=== PATIENT | female | born 1950 | race Caucasian/White ===

== ENCOUNTER → 2018-04-08 16:48 | Outpatient (CLI) | payer MEDICARE, BC, SELFPAY ==
--- NOTE | 2018-04-08 16:55 | DI.MRI.S_ITS ---
PROCEDURE: MR LUMBAR SPINE WO/W CON INDICATIONS: LOW BACK PAIN TECHNIQUE: Noncontrast sagittal T1 spin echo and T2 fast spin echo, sagittal STIR, axial T1 and T2 fast spin echo through the lumbar spine. In cases with scoliosis, additional coronal T2 fast spin echo may be performed. After the administration of contrast, sagittal and axial T1 spin echo with fat saturation through the lumbar spine. COMPARISON: [facility], CR, XR LUMBAR SPINE 2 OR 3 VIEWS, 04/02/2018, 13:17. [facility], CR, XR LUMBAR SPINE 2 OR 3 VIEWS, 03/24/2014, 11:59. [facility], MR, L-SPINE WITHOUT CONTRAST, 06/26/2012, 11:23. FINDINGS: Image quality: Excellent. Alignment and curvature: There is normal bony alignment. Marrow: Marrow is of normal overall signal. No acute vertebral body compression fractures. No suspicious marrow enhancement. Spinal cord: Conus medullaris terminates at the L1 level. Visualized spinal cord demonstrates normal signal, without suspicious enhancement. Paraspinous soft tissues: No paravertebral masses or abnormal enhancement. L1-L2: Preserved disc height. Mild to moderate disc desiccation. There is diffuse posterior disc bulge and posterior central disc protrusion. The central canal is okmi-bz-nebileofye narrowed. Mild to moderate bilateral foraminal stenosis. There is no significant change from last exam. L2-L3: Mild loss of disc height. Mild to moderate disc desiccation. There is diffuse posterior disc bulge and posterior central disc protrusion. Mild bilateral facet arthropathy and hypertrophy of ligamentum flavum. The central canal is moderately narrowed, slightly increased. Mild to moderate bilateral foraminal stenosis, unchanged. L3-L4: Moderate loss of disc height. Mild to moderate disc desiccation. There is mild posterior disc bulge and disc osteophyte complex. Mild bilateral facet arthropathy and hypertrophy of ligamentum flavum. The central canal is mildly narrowed. Mild to moderate bilateral foraminal stenosis. There is no significant change from the last exam. L4-L5: Preserved disc height and disc signal. There is mild posterior disc bulge and posterior central disc protrusion. Mild right facet arthropathy and severe asymmetric right hypertrophy of ligamentum flavum. The central canal is mildly narrowed, unchanged. Minimal bilateral foraminal stenosis. L5-S1: Severe loss of disc height and disc desiccation. There is posterior disc bulge and disc osteophyte complex. Mild bilateral facet arthropathy. The central canal is patent. Moderate bilateral foraminal stenosis, unchanged. IMPRESSION: 1. Multilevel degenerative disc disease and facet arthropathy as described. 2. Moderate central canal stenosis at L2-L3, and mild/moderate central canal stenosis at several other levels. 3. Mild to moderate multilevel foraminal stenosis as described. Dictated by: John Hernandez M.D. on 04/09/2018 at 9:06 Approved by: John Hernandez M.D. on 04/09/2018 at 10:28
== END ==
PROVIDERS: Family Provider Physician Assistant Medical; PCP Physician Assistant Medical; Visit Provider Orthopaedic Surgery
DX: M54.5 Low back pain (principal); M51.36 Other intervertebral disc degeneration, lumbar region; M47.816 Spondylosis without myelopathy or radiculopathy, lumbar region; M48.061 Spinal stenosis, lumbar region without neurogenic claudication
CPT/HCPCS: 72158; A9579

== ENCOUNTER 2018-08-01 07:48 | Day surgery (SDC) | payer MEDICARE, BC, SELFPAY ==
[2018-08-01 08:20] VITALS: BP 116/72; PULSE 100; RESP 16; TEMP 36.6; O2SAT 93; BMI 26.4
[2018-08-01] MEDS: SODIUM CHLORIDE 0.9% 1,000 ML 200 ML IV (08:30)
--- NOTE | 2018-08-01 08:34 | SUR.PREOP ---
Patient resting in bed with at bedside. Call light in reach. Bed in locked and low position. Awaiting procedure. Denies complaints or concerns at this time.
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
--- NOTE | 2018-08-01 09:17 | PM.PREOP ---
Pre-operative Note Interval Note Pre-op Check: Yes History & Physical exam performed today by Physician Changes: No ASA Class (for procedural sedation): I
[2018-08-01] MEDS: fentaNYL 250 MCG/5 ML INJ IV (09:32)
[2018-08-01] MEDS: MIDAZOLAM 5 MG/5 ML VIAL IV (09:33)
--- NOTE | 2018-08-01 09:45 | PM.OP.ENDO ---
Operative Date/Time/Diagnoses Date of procedure: 08/01/18 Time of procedure: 09:45 Pre-op diagnosis: History of polyps. Family history colon cancer. Last colonoscopy 5-6 years ago. Post-op diagnosis: same (Diverticulosis. Scarring on old hemorrhoidal disease. No active ulcerations.) Procedure & Clinicians Study performed: Colonoscopy Same procedure as scheduled: Yes Indications: Screening Surgeon: Romeo Gaffney Procedure Notes SCOAP/Timeout: Performed Procedure in detail: The patient was placed in the left lateral decubitus position and underwent IV sedation directed by the surgeon consisting of fentanyl and Versed. Digital exam was unremarkable. The scope was inserted and advanced through the rectum into the sigmoid, descending, transverse, and ascending colon. Pressure had to be applied to reach that level. Patient was noted to have scattered diverticuli throughout the colon. The cecum was reached identified by the ileocecal valve and the appendiceal opening. The scope was gradually brought out. No Polyps were found. The scope ultimately was retroflexed in the rectum. The appearance was remarkable for old hemorrhoidal disease with scarring but no active it present inflammation. The scope was removed and the patient tolerated the procedure well Scope withdrawal time: Almost 8 min Sedation minutes: 24 Findings: diverticulosis (Scattered throughout the colon.) Recommendations: Colonscopy in 5 years (Due to family history and personal history of polyps) Follow up: as needed Disposition: PACU
[2018-08-01 09:49] VITALS: BP 118/77; PULSE 94; RESP 17; O2SAT 96
[2018-08-01 09:53] VITALS: BP 113/64; PULSE 92; RESP 24; O2SAT 95
[2018-08-01 10:12] VITALS: BP 112/67; PULSE 99; RESP 15; TEMP 36.4; O2SAT 96
== END 2018-08-01 10:22 | disposition home or self-care (01) ==
PROVIDERS: Family Provider Physician Assistant Medical; PCP Physician Assistant Medical; Visit Provider Specialist
PROC: 0DJD8ZZ Inspection of Lower Intestinal Tract, Via Natural or Artificial Opening Endoscopic (ICD-10-PCS; CPT 45378; principal; 2018-08-01 08:45)
DX: Z86.010 Personal history of colon polyps (principal); Z80.0 Family history of malignant neoplasm of digestive organs; K57.30 Diverticulosis of large intestine without perforation or abscess without bleeding
CPT/HCPCS: G0105; 99152; 99153; J2250; J3010

== ENCOUNTER 2018-08-07 08:08 | Inpatient (IN) | payer MEDICARE, BC, SELFPAY ==
[2018-07-28 10:14] VITALS: BMI 27.5
[2018-08-07] VITALS (12 sets, daily range): BP systolic 96–118; BP diastolic 51–75; PULSE 59–85; RESP 13–18; TEMP 36.3–36.8; O2SAT 92–97; BMI 26.4
--- NOTE | 2018-08-07 | DI.RAD.S_ITS ---
PROCEDURE: XR LUMBAR SPINE 2-3V INDICATIONS: L5-S1 TLIF TECHNIQUE: 2 views of the lumbar spine were acquired. COMPARISON: None. FINDINGS: 2 spot fluoroscopic intraoperative views demonstrating a surgical instrument projecting in the posterior paraspinal soft tissues with the tip seen at the level of the L3-L4 disc space. L5-S1 posterior spinal fixation with paraspinal rods and pedicle screws in expected alignment. L5-S1 interbody graft also noted Dictated by: Memo Aguillon M.D. on 08/07/2018 at 13:32 Approved by: Memo Aguillon M.D. on 08/07/2018 at 13:33
[2018-08-07] MEDS: LACTATED RINGERS 1,000 ML 42 ML IV (10:00)
--- NOTE | 2018-08-07 10:24 | PM.PREOP ---
Pre-operative Note Interval Note Pre-op Check: Yes History & Physical Reviewed by Physician and Yes Exam Performed Changes: No
[2018-08-07] MEDS: CLINDAMYCIN 900 MG/50 ML PIGGYBACK 50 MG IV (11:00)
--- NOTE | 2018-08-07 11:39 | SUR.OPER ---
Prone on spine table, head in foam head support, padded chest and pelvic supports, gel pad at knees, lower legs supported by pillows; nipples, genitalia and toes free of pressure, arms secured on foam padded arm boards at <90 degrees abduction. Tape over blanket at thigh secured to table.
[2018-08-07] MEDS: THROMBIN (BOVINE) 5,000 UNIT VIAL 5000 UNIT TOP (11:48)
[2018-08-07] MEDS: VANCOMYCIN 1,000 MG VIAL 1000 MG TOP (11:48)
[2018-08-07] MEDS: SODIUM CHLORIDE 0.9% 1,000 ML, GENTAMICIN 80 MG IRR (11:49)
[2018-08-07] MEDS: BUPIVACAINE 0.5% (PF) 4 ML, MORPHINE-PF 4 MG, BUTORPHANOL 1 MG, fentaNYL 100 MCG INJ (13:55)
--- NOTE | 2018-08-07 14:20 | PM.OP.1 ---
Operative Date/Time/Diagnoses Date of procedure: 08/07/18 Time of procedure: 14:20 Pre-op diagnosis: Lumbar stenosis with radiculopathy Post-op diagnosis: same Procedure & Clinicians Procedure: L2-3 laminectomy L3-4 laminectomy L5-S1 revision laminectomy L5-S1 TLIF (post/post innerbody fusion) L5 and S1 screws Cage Iliac crest bone graft Placement of an epidural catheter Use of microscope Same procedure as scheduled: Yes Indications: [age] year old female with intractable pain from lumbar stenosis. They had failed conservative management and requested operative intervention. Risks and benefits of surgery were discussed and appropriate consents were obtained. Surgeon: Rigo Olmstead Attendant [facility]: [facility] Ackerman Anesthesia Type: General Operative Notes Findings: none Closure Type: primary Specimen(s): none sent Implants & Drains: NuVasive MAS Reline screws Globus Rise cage Applied: catheter Estimated Blood Loss (mL): 50 Blood products transfused: none Procedure in detail: The patient was brought to the operating room and intubated on the table. A time-out was performed. They were then rolled over to the well-padded Luan table in the prone position. Preoperative antibiotics were given. The back was prepped and draped in the standard sterile fashion. Using fluoroscopy, a 4 cm longitudinal incision was made to the left of the midline. We used Bovie to come down to and split the lumbodorsal fascia. Using fluoroscopy and monitoring, we then percutaneously placed Jamshidi needles down the pedicles of L5 and S1 on the left side. These were changed out to guidewires and then we tapped and then placed the NuVasive MAS Precept screw shanks. We then opened up the retractors and used Bovie to clear up the posterolateral gutter as well as medially along the lamina to the spinous processes. A bur was used to decorticate the transverse processes. Using a combination of bur and Kerrison rongeurs, a revision left-sided laminectomy was performed at L5-S1. This was a revision is there was a large amount of scar tissue coming down from the previous L4-5 laminectomy. This was densely adherent to the dura and had to be carefully dissected away. The S1 nerve root was also scarred down to the disc space along with this and took a large amount of time to carefully free it up. We cleared over past the midline and carefully depressed the dura until we were able to decompress the opposite side. We cleared out the neural foramen. This completed the revision laminotomy at L5-S1. This was separate and distinct from the TLIF approach as we were decompressing through scarred in revision area which required much more time for dissection and nerve manipulation. We then began the TLIF prep. A complete facetectomy was performed on this side at L5-S1. We carefully cleaned up the remainder of the foramen until we could easily retract the exiting root as well as clearing medially below the dura and expose the disc space. The disc was prepped with bipolar and then an annulotomy was performed. We performed a diskectomy using a combination of paddles, torrie, Kerrison, and curettes. We distracted the disc using a paddle and locked the retractor in an open position. We then filled the disc space with Osteocell bone graft. We then placed the globus Rise cage under fluoroscopy and then filled this in with more bone graft. The distraction on the retractor was released to compress down. This completed the posterior interbody fusion portion of the TLIF at L5-S1. We then placed the screw heads, carmen, and locked down the set screws. The wound was copiously irrigated. A small stab incision was made over the PSIS. We used a Jamshidi needle to aspirate several mL of bone marrow from the pelvis. This was mixed with the remaining Osteocell and combined with all of the locally harvested bone graft and placed in the posterolateral gutter for the posterior fusion of the TLIF at L5-S1. We then went to the opposite side. Again using fluoroscopy, a 3 cm incision was made and Bovie was used to come down to split the fascia. Using neural monitoring and fluoroscopy, Jamshidi needles were advanced down the pedicles of L5 and S1 on the right side. These were switched over guidewires, tapped, and screws placed. We then placed a carmen and locked the set screws on this side. The wound was irrigated. The fascia was closed. We then made a 4 cm midline incision above this area. We dissected with Bovie along the right paraspinal muscles and expose the lamina of L2 and L3. Position was confirmed with fluoroscopy. We then brought the microscope back in. A combination of bur and Kerrison 3 to perform a laminectomy of L3-4 and L2-3. We carefully depress the dura and reach to the opposite side to remove all the facet overgrowth on the left. At the end of this the spinal canal was wide open as well as the neural foramina been cleared. The wound was copiously irrigated An epidural catheter was then placed in the spinal canal by carefully depressing the dura and advancing it 6 cm cephalad under the remaining lamina without resistance. The muscle fascia was closed. The catheter was then injected with a solution containing 4 mL of 0.5% Marcaine, 1 mg Stadol, 4 mg Duramorph, and 100 mcg of fentanyl. This was injected without resistance and the catheter was pulled. The wounds were again irrigated. Vancomycin powder was placed in the wounds. The superficial and skin were closed. A sterile dressing was placed. The patient was then rolled over extubated and brought to recovery room without complications. Complications: none Condition: stable Disposition: PACU Plan for aftercare: Inpatient. Up with physical therapy.
--- NOTE | 2018-08-07 15:55 | P.PN_ITS ---
Subjective Date Patient Seen: 08/07/18 Time Patient Seen: 15:54 Interval history: Pain 10 all back Exam Vital Signs (past 8 hours): - 08/07/18 08:42 08/07/18 14:15 08/07/18 14:20 Temperature 97.3 F L 98.3 F Pulse Rate 70 74 73 Respiratory Rate 16 13 14 Blood Pressure 118/70 98/51 L 96/52 L Pulse Oximetry 93 92 93 08/07/18 14:25 08/07/18 14:30 08/07/18 14:43 Temperature 97.3 F L 97.6 F Pulse Rate 78 75 71 Respiratory Rate 17 17 18 Blood Pressure 97/57 L 106/59 L 111/62 Pulse Oximetry 93 97 96 08/07/18 15:01 08/07/18 15:02 08/07/18 15:36 Temperature 97.5 F L 97.5 F L 97.4 F L Pulse Rate 73 70 59 L Respiratory Rate 16 18 16 Blood Pressure 114/75 114/75 106/57 L Pulse Oximetry 95 94 95 Oxygen Delivery Method Room Air Oxygen Flow Rate 0 Const Orientation: alert and oriented x3 Back/Spine/Pelvis Other: 5/5 motor BLE Assessment & Plan Post-op Postoperative Procedures Operation Date: 08/07/18 10:15 Actual Procedures Side Surgeon p Laminectomy L2-3,L3-4 Revision Laminectomy L5-S1 with instrumented fusion(TLIF ) with bone graft Rigo Olmstead MD Stable after lami/fusion. anticipate 2-3 days in hospital. up with PT
[2018-08-07] MEDS: LACTATED RINGERS 1,000 ML 125 ML IV (16:02)
[2018-08-07] MEDS: CELECOXIB 200 MG CAPSULE 400 MG PO (16:24)
[2018-08-07] MEDS: GABAPENTIN 300 MG CAPSULE 600 MG PO ×2 (16:25→20:30)
[2018-08-07] MEDS: HYDROCODONE/ACET 5/325 TABLET 1 TAB PO (17:47)
[2018-08-07] MEDS: hydrOXYzine pamoate 25 MG CAPSULE PO (17:47)
--- NOTE | 2018-08-07 17:54 | PC.NURSE ---
Pt rouses easily to voice. Able to log roll for assessment of dressing to back which is intact without drainage. Spouse is present and attentive to pt's needs/concerns. Denies pain, denies nausea. Admits to full sensation to all extremities. BL calf scd's in place. Jacob to gravity with clear, yellow urine. Encouraged pt to alert staff when incisional discomfort occurs. Dr. Olmstead in to see patient.
[2018-08-07] MEDS: CLINDAMYCIN 600 MG/50 ML PIGGYBACK 50 MG IV (20:25)
[2018-08-07] MEDS: CELECOXIB 200 MG CAPSULE PO (20:29)
[2018-08-07] MEDS: DOCUSATE 100 MG CAPSULE PO (20:29)
[2018-08-07] MEDS: SENNOSIDES 8.6 MG TABLET 17.2 MG PO (20:30)
[2018-08-07] MEDS: TOPIRAMATE 25 MG TABLET 50 MG PO (20:37)
--- NOTE | 2018-08-07 22:11 | PC.NURSE ---
When pt was turned to the left side this evening this chief underwriter noted pt's sutures to distal back incision were exposed to air. Dressing above this region intact with scant amount bloody drainage contained within dressing. This chief underwriter covered exposed sutures distally BL with folded 4 x 4 and secured with large tegaderm. Pt denies need for further pain medications. Circulation, motion, sensation to feet BL intact. BL calf scd's in place.
--- NOTE | 2018-08-07 22:50 | PC.NURSE ---
With sleep, pt's 02 sats on room air 89-91%. Placed pt on 2L per nc and sats increase to 97%. Rouses easily to voice.
[2018-08-08] VITALS (9 sets, daily range): BP systolic 98–158; BP diastolic 48–90; PULSE 67–75; RESP 16–18; TEMP 36.5–37; O2SAT 89–98
[2018-08-08] MEDS: LACTATED RINGERS 1,000 ML 125 ML IV ×2 (00:01→09:05)
--- NOTE | 2018-08-08 01:57 | PC.NURSE ---
shift note Met with pt at start of shift. A0x3. Remains on 2L while asleep. No complaints of pain, N/V. CMS intact. Currently asleep in bed. Call light in reach.
[2018-08-08] MEDS: HYDROCODONE/ACET 5/325 TABLET 1 TAB PO ×3 (02:58→13:30)
[2018-08-08] MEDS: CLINDAMYCIN 600 MG/50 ML PIGGYBACK 50 MG IV (02:59)
[2018-08-08 05:09] LABS: Hematocrit 36.2 % (36-46); Hemoglobin 12.4 g/dL (12.0-16.0)
[2018-08-08] MEDS: buPROPion XL 150 MG TAB 300 MG PO (08:54)
[2018-08-08] MEDS: DOCUSATE 100 MG CAPSULE PO ×2 (08:54→20:30)
[2018-08-08] MEDS: CELECOXIB 200 MG CAPSULE PO ×2 (08:54→20:30)
[2018-08-08] MEDS: GABAPENTIN 300 MG CAPSULE 600 MG PO ×3 (08:54→20:30)
[2018-08-08] MEDS: TOPIRAMATE 25 MG TABLET 50 MG PO ×2 (09:11→20:33)
--- NOTE | 2018-08-08 10:06 | PM.PNPO.1 ---
Subjective Date Patient Seen: 08/08/18 Time Patient Seen: 10:06 Interval history: Postop day 1. Status post L2 -3, L3-4 laminectomies, and L5-S1 TLIF with Dr. Olmstead. Patient's pain is well controlled with [place] and Vistaril. She does not have medications at home. She has not been up with physical therapy yet. Has Jacob catheter in place still. Exam Vital Signs (past 8 hours): - 08/08/18 06:00 08/08/18 07:56 Temperature 98.2 F Pulse Rate 67 Respiratory Rate 16 Blood Pressure 98/62 Pulse Oximetry 97 97 Oxygen Delivery Method Nasal Cannula Oxygen Flow Rate 2 Narrative Exam Narrative: Patient lying in bed in no acute distress. She is alert and oriented x3. Calves are soft, compressible, nontender bilaterally. Jacob in place. She is able to actively dorsiflex plantar flex. Sensation intact light touch throughout bilateral lower extremities. Objective Labs Result Diagrams: 08/08/18 04:40 Labs: Laboratory Results - last 24 hr 08/08/18 04:40 Hgb 12.4 Hct 36.2 Assessment & Plan Post-op (1) S/P lumbar fusion: Current Visit: Yes Status: Acute Postoperative Procedures Operation Date: 08/07/18 10:15 Actual Procedures Side Surgeon p Laminectomy L2-3,L3-4 Revision Laminectomy L5-S1 with instrumented fusion(TLIF) with bone graft Rigo Olmstead MD Postop day 1. Status post L2 -3, L3-4 laminectomies, and L5-S1 TLIF with Dr. Olmstead. Patient will plan to mobilize with physical therapy today. No excessive bending, lifting, or twisting. Keep Jacob in place until tomorrow a.m.. Continue current pain control. Patient will likely discharge in next 1-2 days once pain is adequately controlled and mobilizing safely.
--- NOTE | 2018-08-08 10:11 | P.PN_ITS ---
Subjective Date Patient Seen: 08/08/18 Time Patient Seen: 10:06 Interval history: Postop day 1. Status post L2 -3, L3-4 laminectomies, and L5- S1 TLIF with Dr. Olmstead. Patient's pain is well controlled with [place] and Vistaril. She does not have medications at home. She has not been up with physical therapy yet. Has Jacob catheter in place still. Exam Vital Signs (past 8 hours): - 08/08/18 06:00 08/08/18 07:56 Temperature 98.2 F Pulse Rate 67 Respiratory Rate 16 Blood Pressure 98/62 Pulse Oximetry 97 97 Oxygen Delivery Method Nasal Cannula Oxygen Flow Rate 2 Narrative Exam Narrative: Patient lying in bed in no acute distress. She is alert and oriented x3. Calves are soft, compressible, nontender bilaterally. Jacob in place. She is able to actively dorsiflex plantar flex. Sensation intact light touch throughout bilateral lower extremities. Objective Labs Result Diagrams: 08/08/18 04:40 Labs: Laboratory Results - last 24 hr 08/08/18 04:40 Hgb 12.4 Hct 36.2 Assessment & Plan Post-op (1) S/P lumbar fusion: Current Visit: Yes Status: Acute Postoperative Procedures Operation Date: 08/07/18 10:15 Actual Procedures Side Surgeon p Laminectomy L2-3,L3-4 Revision Laminectomy L5-S1 with instrumented fusion(TLIF ) with bone graft Rigo Olmstead MD Postop day 1. Status post L2 -3, L3-4 laminectomies, and L5-S1 TLIF with Dr. Olmstead. Patient will plan to mobilize with physical therapy today. No excessive bending, lifting, or twisting. Keep Jacob in place until tomorrow a.m.. Continue current pain control. Patient will likely discharge in next 1- 2 days once pain is adequately controlled and mobilizing safely.
[2018-08-08] MEDS: hydrOXYzine pamoate 25 MG CAPSULE PO ×3 (10:49→21:51)
--- NOTE | 2018-08-08 11:35 | PC.NURSE ---
AM NOTE - alert, damien gen diet, no nausea, + bt, states back discomfort 3-4 on scale 0/10, discussed medications and given norco 5/325mg x1 tab after meal, later felt that pain 4 prior to phys therapy and added 25mg po vistaril, then able to get up with phys therapy, after some initial dizziness that resolved, ambul w/fww, gait belt with phys therapy down hallway, gait steady and ret to chair.
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
--- NOTE | 2018-08-08 15:25 | CM.IDA ---
Discharge Planning/Care Management CM Discharge Assessment Start: 08/08/18 15:22 Freq: Status: Active Protocol: Document 08/08/18 15:22 ROSARIO (Rec: 08/08/18 15:24 ROSARIO [email or web address]) Discharge Planning Assessment Assigned Electrical Design Engineer DIOGO Pal DPOA/Assigned Designee Name Jose A Gaitan, spouse Contact Information [phone] Advance Directives? Yes Advance Directives on File No History Provided By Patient Prior Living Arrangements House Household Members spouse Type of transporation used prior to Drives own vehicle admit Independent with ADL's Yes Is patient alert and oriented? Yes Barriers to Discharge No Comment Home w/spouse Saturday; [address] back to [place]. Discharge Plan Home Transportation Arrangement Spouse Referrals Initiated None needed Additional Comment Pt and spouse both feel confident about pt's return home. PT has cleared pt for return home and RN agrees pt should have no barriers tomorrow. Progressing well after surgery. Whiteboard Updated in Patient Room with Yes name and ext. # of Electrical Design Engineer Review Status In Process Pre-Anesthesia Assessment Start: 07/28/18 10:14 Freq: Status: Complete Protocol: Document 07/28/18 10:14 NIYAH (Rec: 07/28/18 10:34 NIYAH [email or web address])
--- NOTE | 2018-08-08 15:29 | PT.IPTN ---
Current Diagnoses Spinal stenosis, lumbar region with neurogenic claudication (08/07/18) Other intervertebral disc degeneration, lumbar region (08/07/18) Arthrodesis status (08/07/18) Other specified postprocedural states (08/07/18) Surgery Performed Operation Date: 08/07/18 10:15 Actual Procedures p Laminectomy L2-3,L3-4 Revision Laminectomy L5-S1 with instrumented fusion(TLIF) with bone graft - Rigo Olmstead MD Physical Therapy Treatment Note M2 PT-IP Current Condition Start: 08/08/18 12:56 Freq: NEEDED Status: Active Protocol: Document 08/08/18 11:49 DLM (Rec: 08/08/18 17:57 DLM [email or web address]) Physical Therapy Current Condition Current Condition Evaluation Date 08/08/18 Treatment Diagnosis L5-S1 TLIF, L3-S1 Laminectomy, impaired gait Onset Date 08/07/18 Precautions Lumbar Precautions Log Roll No Twisting Limit Bending Lifting Restriction of 10 lbs Gait Belt above Incisional Area M3 PT-IP Subjective Start: 08/08/18 12:56 Freq: NEEDED Status: Active Protocol: Document 08/08/18 15:29 DLM (Rec: 08/08/18 18:05 DLM [email or web address]) Subjective Physical Therapy Visit Type Type Treatment Note Visit Start Time 15:00 Visit Stop Time 15:29 Total Visit Minutes 29 Number of METER AND SERVICE LINE INSPECTOR Visits 0 Physical Therapy Visit Comments Patient Comments She wants to walk Therapy Pain Assessment Pain When Pain Assessed During Mobility Pain Present Pain Present Pain Reported Location Back Intensity 4 Scale Used Numeric (1 - 10) Description Aching Pain Management Techniques Re-positioning M4 PT-IP Mobility and Gait Start: 08/08/18 12:56 Freq: NEEDED Status: Active Protocol: Document 08/08/18 15:29 DLM (Rec: 08/08/18 18:05 DLM [email or web address]) PT-Bed Mobility Assessment Rolling Type of Rolling Log Rolling Roll to Right Roll to Left Level of Assist Standby Assistance Supine to Sit Supine to Sit Standby Assistance Sit to Supine Sit to Supine Minimal Assistance Scooting Scooting to Edge of Bed Standby Assistance PT-Transfer Assessment Sit to and From Stand Sit to and from Stand Standby Assistance Use of Upper Extremities Equipment Transfer Assistive Device Gait Belt Front Wheeled Walker Comments Mobility Comments training on tall bed to simulate her bed at home, she does well getting off the bed but has increased pain getting back up onto it Gait Assessment Gait Gait Assistance Required: Standby Assistance Distance (Feet) 200 Assistive Devices Assistive Device Gait Belt Front Wheeled Walker Factors Limiting Gait Function Factors Limiting Gait Function Decreased Activity Tolerance Pain Comments Gait Comments verbal cues to avoid twisting motions when up moving functionally Stair Climbing Assessment Evaluation Level of Assist On Stairs Contact Guard Assistance Devices Stair Climbing Assistive Devices Right Railing Technique/Endurance Stair Climbing Direction Ascend and Descend Stair Climbing Technique Step to Step Number of Steps Climbed 3 Query Text: Stair Climbing Set # Repetitions (reps) 2 M5 PT-IP Objective Assessments Start: 08/08/18 12:56 Freq: NEEDED Status: Active Protocol: Document 08/08/18 11:49 DLM (Rec: 08/08/18 17:57 DLM [email or web address]) Orientation Orientation/Cognition Level of Alertness Alert Orientation Name Age Birthday Month Date Year Day of Week Place Situation Language Function Ability No Deficits Noted Safety Awareness Understands Safety Issues Memory Description No Deficits Noted Gross Range of Motion Upper Extremity ROM Assessment Within Functional Limits Lower Extremity ROM Assessment Within Functional Limits Strength Upper Extremity Strength Assessment Within Functional Limits Lower Extremity Strength Assessment Bilaterally Impaired Comments Strength Comments she describes mild LE weakness in standing Coordination Assessment Gross Coordination Gross Coordination WNL Sensation Assessment Sensation Gross Sensation WNL Muscle Tone Muscle Tone WNL No Comments Muscle Tone Comments mild tremors, tends to hold head to left sidebent position but can self correct especially when cued M6 PT-IP Treatment Start: 08/08/18 12:56 Freq: NEEDED Status: Active Protocol: Document 08/08/18 15:29 DLM (Rec: 08/08/18 18:05 DL [email or web address]) Physical Therapy Treatment Exercises Exercises Ankle Pumps Education Education Provided Precautions Post-Op Packet Safety Other Treatments Other Treatment Performed Her Spouse participate in education for home safety and precautions. Answered her questions about how to advance home activities . M7 PT-IP Assessment and Plan Start: 08/08/18 12:56 Freq: NEEDED Status: Active Protocol: Document 08/08/18 15:29 DLM (Rec: 08/08/18 18:05 DLM [email or web address]) PT Summary Assessment and Plan Summary Progress Towards Goals Progressing Toward Goals Assessment Summary She continues to progress well this visit. Her tolerance for gait is improving. Anticipate she will be ready to discharge home with her Spouse tomorrow if medically cleared . Pt still has han catheter at this time. She demonstrates safe use of her FWW. Pt requesting one more therapy visit before going home for additional education. Pt has a ferry to catch on day of discharge. Frequency of Treatment Frequency Of Treatment Twice a Day Treatment Plan Physical Therapy Treatment Plan Bed Mobility Training Transfer Training Gait Training Therapeutic Exercise Balance Retraining Post Op Education Discharge Planning Hot or Cold Pack Recommendations To Nursing Amount of Assist Needed 1 Person Assist Discharge Recommendations PT Discharge Recommendations Home with Assistance
[2018-08-08] MEDS: HYDROCODONE/ACET 5/325 TABLET 2 TAB PO ×2 (17:26→21:51)
[2018-08-08] MEDS: SENNOSIDES 8.6 MG TABLET 17.2 MG PO (20:30)
[2018-08-08] MEDS: PROPRANOLOL ER 60 MG CAPSULE PO (20:31)
[2018-08-08] MEDS: PROPRANOLOL 10 MG TABLET 40 MG PO (20:31)
[2018-08-08] MEDS: SODIUM CHLORIDE 0.9% FLUSH 10 ML IV (20:34)
[2018-08-09 00:08] VITALS: BP 93/49; PULSE 65; RESP 16; TEMP 36.7; O2SAT 93
[2018-08-09 06:12] VITALS: BP 89/51; PULSE 59; RESP 16; TEMP 36.7; O2SAT 96
[2018-08-09 08:00] VITALS: BP 104/44; PULSE 61; RESP 16; TEMP 36.6; O2SAT 96
[2018-08-09] MEDS: HYDROCODONE/ACET 5/325 TABLET 2 TAB PO ×2 (08:56→12:58)
[2018-08-09] MEDS: hydrOXYzine pamoate 25 MG CAPSULE PO (08:57)
[2018-08-09] MEDS: GABAPENTIN 300 MG CAPSULE 600 MG PO (08:58)
[2018-08-09] MEDS: buPROPion XL 150 MG TAB 300 MG PO (08:58)
[2018-08-09] MEDS: DOCUSATE 100 MG CAPSULE PO (08:58)
[2018-08-09] MEDS: CELECOXIB 200 MG CAPSULE PO (08:58)
[2018-08-09] MEDS: SODIUM CHLORIDE 0.9% FLUSH 10 ML IV (09:00)
[2018-08-09] MEDS: TOPIRAMATE 25 MG TABLET 50 MG PO (09:01)
--- NOTE | 2018-08-09 09:19 | PM.DS.1 ---
History of Present Illness Date Patient Seen: 08/09/18 Time Patient Seen: 09:20 Chief complaint: [id number] L2-4 L5-S1 Narrative: Patient's pain is [id number]. No fever chills. No nausea vomiting. She denies any dizziness. She has recently been treated for essential tremor. She has known low blood pressure. Discharge Providers Date of admission: 08/07/18 08:08 Primary care physician: Maggi Joya PA-C Consults: 08/07/18 15:01 Consult to Occupational Therapy Evaluate & Treat Comment: Physician Instructions: Evaluate and treat Consult to Physical Therapy Evaluate & Treat Comment: Physician Instructions: Evaluate and Treat Discharge provider: Catracho Saha PA-C Discharge Date: 08/09/18 Summary Discharge Diagnosis: Procedure: L2-3 laminectomy L3-4 laminectomy L5-S1 revision laminectomy L5-S1 TLIF (post/post innerbody fusion) L5 and S1 screws Cage Iliac crest bone graft Placement of an epidural catheter Use of microscope Hospital Course: [age] year old female with intractable pain from lumbar stenosis. They had failed conservative management and requested operative intervention. Risks and benefits of surgery were discussed and appropriate consents were obtained. Patient admitted to the hospital for the above-mentioned procedure. Patient underwent general anesthesia. Estimated blood loss 50 cc. Patient back in her room recovering well and is in stable condition. Status at Discharge Functional status at discharge: uses cane/walker Overall status at discharge: patient is progressing back to baseline Time Spent with Patient Less than 30 minutes Exam Vital Signs (past 8 hours): - 08/09/18 06:12 Temperature 98.0 F Pulse Rate 59 L Respiratory Rate 16 Blood Pressure 89/51 L Pulse Oximetry 96 Oxygen Delivery Method Room Air Oxygen Flow Rate 3 Narrative Exam Narrative: Pleasant 68-year-old female resting comfortably in bed in no apparent distress. Dressing is clean, dry and intact. Motor functions intact distal bilateral lower extremities. Sensation grossly intact to light touch bilateral lower extremities. Objective Labs Result Diagrams: 08/08/18 04:40 Discharge Plan Discharge Plan Patient Disposition: Home Discharge comment: DC home today Discharge Med Rec/Prescriptions Prescriptions: New hydrocodone-acetaminophen 5-325 mg Tablet 2 tab PO Q4HR PRN (Reason: Pain, Severe (7-10)) Qty: 60 RF: 0 Continue bupropion HCl 300 MG tablet extended release 24 hr 300 mg PO QDAY Qty: 0 RF: 0 rizatriptan 10 MG tablet 10 mg PO PRN PRN (Reason: Migraine Headache) Qty: 0 RF: 0 propranolol 10 mg Tablet 40 mg PO DAILY RF: 0 gabapentin 300 mg Capsule 600 mg PO TID RF: 0 propranolol 60 mg Capsule,Extended Release 24 Hr 60 mg PO DAILY RF: 0 topiramate [Topamax] 25 mg Capsule, Sprinkle 50 mg PO BID RF: 0 Follow up/Referrals: Maggi Joya PA-C [Primary Care Provider] - Rigo Olmstead MD [Physician] - 2 Weeks Provider Discharge Instructions Diet: Diet as Tolerated Activity: Limit bending, twisting, lifting Cold/Heat Therapy: ice as needed Skin/Wound/Dressing Care Dressing: keep dressing clean and dry Discharge Data Primary Care Provider: Maggi Joya Attending Provider: Rigo Olmstead Admit Date/Time: 08/07/18 08:08
--- NOTE | 2018-08-09 09:23 | P.DS_ITS ---
History of Present Illness Date Patient Seen: 08/09/18 Time Patient Seen: 09:20 Chief complaint: [id number] L2-4 L5-S1 Narrative: Patient's pain is [id number]. No fever chills. No nausea vomiting. She denies any dizziness. She has recently been treated for essential tremor. She has known low blood pressure. Discharge Providers Date of admission: 08/07/18 08:08 Primary care physician: Maggi Joya PA-C Consults: 08/07/18 15:01 Consult to Occupational Therapy Evaluate & Treat Comment: Physician Instructions: Evaluate and treat Consult to Physical Therapy Evaluate & Treat Comment: Physician Instructions: Evaluate and Treat Discharge provider: Catracho Saha PA-C Discharge Date: 08/09/18 Summary Discharge Diagnosis: Procedure: L2-3 laminectomy L3-4 laminectomy L5-S1 revision laminectomy L5-S1 TLIF (post/post innerbody fusion) L5 and S1 screws Cage Iliac crest bone graft Placement of an epidural catheter Use of microscope Hospital Course: [age] year old female with intractable pain from lumbar stenosis. They had failed conservative management and requested operative intervention. Risks and benefits of surgery were discussed and appropriate consents were obtained. Patient admitted to the hospital for the above-mentioned procedure. Patient underwent general anesthesia. Estimated blood loss 50 cc. Patient back in her room recovering well and is in stable condition. Status at Discharge Functional status at discharge: uses cane/walker Overall status at discharge: patient is progressing back to baseline Time Spent with Patient Less than 30 minutes Exam Vital Signs (past 8 hours): - 08/09/18 06:12 Temperature 98.0 F Pulse Rate 59 L Respiratory Rate 16 Blood Pressure 89/51 L Pulse Oximetry 96 Oxygen Delivery Method Room Air Oxygen Flow Rate 3 Narrative Exam Narrative: Pleasant 68-year-old female resting comfortably in bed in no apparent distress. Dressing is clean, dry and intact. Motor functions intact distal bilateral lower extremities. Sensation grossly intact to light touch bilateral lower extremities. Objective Labs Result Diagrams: 08/08/18 04:40 Discharge Plan Discharge Plan Patient Disposition: Home Discharge comment: DC home today Discharge Med Rec/Prescriptions Prescriptions: New hydrocodone-acetaminophen 5-325 mg Tablet 2 tab PO Q4HR PRN (Reason: Pain, Severe (7-10)) Qty: 60 RF: 0 Continue bupropion HCl 300 MG tablet extended release 24 hr 300 mg PO QDAY Qty: 0 RF: 0 rizatriptan 10 MG tablet 10 mg PO PRN PRN (Reason: Migraine Headache) Qty: 0 RF: 0 propranolol 10 mg Tablet 40 mg PO DAILY RF: 0 gabapentin 300 mg Capsule 600 mg PO TID RF: 0 propranolol 60 mg Capsule,Extended Release 24 Hr 60 mg PO DAILY RF: 0 topiramate [Topamax] 25 mg Capsule, Sprinkle 50 mg PO BID RF: 0 Follow up/Referrals: Maggi Joya PA-C [Primary Care Provider] - Rigo Olmstead MD [Physician] - 2 Weeks Provider Discharge Instructions Diet: Diet as Tolerated Activity: Limit bending, twisting, lifting Cold/Heat Therapy: ice as needed Skin/Wound/Dressing Care Dressing: keep dressing clean and dry Discharge Data Primary Care Provider: Maggi Joya Attending Provider: Rigo Olmstead Admit Date/Time: 08/07/18 08:08
--- NOTE | 2018-08-09 11:18 | CM.DPC ---
DCP Discharge Home Per MD, pt is medically stable to d/c home today with no identified barriers to discharge. Per RN, pt independent in room and no concerns at this time. Plan: Patient to d/c home today via [address] back to [place] and no SW needs at this time. DIOGO Suresh
[2018-08-09 11:43] VITALS: O2SAT 96
--- NOTE | 2018-08-09 12:10 | PT.IPTN ---
Current Diagnoses Spinal stenosis, lumbar region with neurogenic claudication (08/07/18) Other intervertebral disc degeneration, lumbar region (08/07/18) Arthrodesis status (08/07/18) Other specified postprocedural states (08/07/18) Surgery Performed Operation Date: 08/07/18 10:15 Actual Procedures p Laminectomy L2-3,L3-4 Revision Laminectomy L5-S1 with instrumented fusion(TLIF) with bone graft - Rigo Olmstead MD Physical Therapy Treatment Note M2 PT-IP Current Condition Start: 08/08/18 12:56 Freq: NEEDED Status: Discharge Protocol: Document 08/09/18 12:10 [facility] (Rec: 08/09/18 13:23 [facility] [id number]) Physical Therapy Current Condition Current Condition Evaluation Date 08/08/18 Treatment Diagnosis L5-S1 TLIF, L3-S1 Laminectomy, impaired gait Onset Date 08/07/18 Precautions Lumbar Precautions Log Roll No Twisting Limit Bending Lifting Restriction of 10 lbs Gait Belt above Incisional Area M3 PT-IP Subjective Start: 08/08/18 12:56 Freq: NEEDED Status: Discharge Protocol: Document 08/09/18 12:10 [facility] (Rec: 08/09/18 13:23 [facility] [id number]) Subjective Physical Therapy Visit Type Type Treatment Note Visit Start Time 11:55 Visit Stop Time 12:10 Total Visit Minutes 15 Number of AUTO PAINTER Visits 0 Physical Therapy Visit Comments Patient Comments pt and spouse want to have one more PT session, review stairs. M4 PT-IP Mobility and Gait Start: 08/08/18 12:56 Freq: NEEDED Status: Discharge Protocol: Document 08/09/18 12:10 [facility] (Rec: 08/09/18 13:23 [facility] [id number]) PT-Bed Mobility Assessment Rolling Type of Rolling Log Rolling Level of Assist Independent Supine to Sit Supine to Sit Independent Sit to Supine Sit to Supine Independent Scooting Scooting to Edge of Bed Independent PT-Transfer Assessment Sit to and From Stand Sit to and from Stand Independent Use of Upper Extremities Equipment Transfer Assistive Device Gait Belt Front Wheeled Walker Transfers Transfer Destination Bed Transfer Technique Stand Step Pivot Transfer Ability Level of Assist Standby Assistance Gait Assessment Gait Gait Assistance Required: Independent Distance (Feet) 215 Assistive Devices Assistive Device Gait Belt Front Wheeled Walker Factors Limiting Gait Function Factors Limiting Gait Function Decreased Activity Tolerance Stair Climbing Assessment Evaluation Level of Assist On Stairs Contact Guard Assistance Devices Stair Climbing Assistive Devices Left Railing Technique/Endurance Stair Climbing Direction Ascend and Descend Stair Climbing Technique Step to Step Number of Steps Climbed 3 Query Text: Stair Climbing Set # Repetitions (reps) 2 Comments Stair Climbing Comments assisted with 2nd trial PT-Balance Assessment Comments Other Balance Tests/Deviations/Treatment FWW a little too high, but pt : able to tolerate excessive UT activation in standing by using slight UE assist on walker. M5 PT-IP Objective Assessments Start: 08/08/18 12:56 Freq: NEEDED Status: Discharge Protocol: Document 08/08/18 11:49 [facility] (Rec: 08/08/18 17:57 [facility] [id number]) Orientation Orientation/Cognition Level of Alertness Alert Orientation Name Age Birthday Month Date Year Day of Week Place Situation Language Function Ability No Deficits Noted Safety Awareness Understands Safety Issues Memory Description No Deficits Noted Gross Range of Motion Upper Extremity ROM Assessment Within Functional Limits Lower Extremity ROM Assessment Within Functional Limits Strength Upper Extremity Strength Assessment Within Functional Limits Lower Extremity Strength Assessment Bilaterally Impaired Comments Strength Comments she describes mild LE weakness in standing Coordination Assessment Gross Coordination Gross Coordination WNL Sensation Assessment Sensation Gross Sensation WNL Muscle Tone Muscle Tone WNL No Comments Muscle Tone Comments mild tremors, tends to hold head to left sidebent position but can self correct especially when cued M6 PT-IP Treatment Start: 08/08/18 12:56 Freq: NEEDED Status: Discharge Protocol: Document 08/08/18 15:29 D[facility] (Rec: 08/08/18 18:05 [facility] [id number]) Physical Therapy Treatment Exercises Exercises Ankle Pumps Education Education Provided Precautions Post-Op Packet Safety Other Treatments Other Treatment Performed Her Spouse participate in education for home safety and precautions. Answered her questions about how to advance home activities . M7 PT-IP Assessment and Plan Start: 08/08/18 12:56 Freq: NEEDED Status: Discharge Protocol: Document 08/09/18 12:10 [facility] (Rec: 08/09/18 13:23 [facility] [id number]) PT Summary Assessment and Plan Summary Progress Towards Goals Safe For Discharge Assessment Summary POD #2. Pt able to perform all mobility independently, except for CGA for stair management. Her assisted pt with 2nd trial of stairs safely and appropriately. Pt is cleared to d/c home when medically stable. Goals Bed Mobility Goal Independent Transfer Goal Independent Front Wheeled Walker Gait Goal Independent Front Wheel Walker Gait Distance 200 feet Other Goals up and down 2-3 steps with one rail and SBA Days to Meet Goals 3 Frequency of Treatment Frequency Of Treatment Twice a Day Treatment Plan Physical Therapy Treatment Plan Bed Mobility Training Transfer Training Gait Training Therapeutic Exercise Balance Retraining Post Op Education Discharge Planning Hot or Cold Pack Recommendations To Nursing Amount of Assist Needed 1 Person Assist Discharge Recommendations PT Discharge Recommendations Home with Assistance
[2018-08-09 12:15] VITALS: BP 112/55; PULSE 67; RESP 16; TEMP 36.7; O2SAT 97
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
--- NOTE | 2018-08-09 13:18 | PC.NURSE ---
Pt is dressed, IV d/c'd, discharge instructions explained and acknowledge by pt and spouse, transported out via wheelchair by RN to [facility] with spouse and all belongings.
--- NOTE | 2018-08-09 14:20 | OT.IP.TRT ---
Current Diagnoses Spinal stenosis, lumbar region with neurogenic claudication (08/07/18) Other intervertebral disc degeneration, lumbar region (08/07/18) Arthrodesis status (08/07/18) Other specified postprocedural states (08/07/18) Surgery Performed Operation Date: 08/07/18 10:15 Actual Procedures p Laminectomy L2-3,L3-4 Revision Laminectomy L5-S1 with instrumented fusion(TLIF) with bone graft - Rigo Olmstead MD Occupational Therapy Treatment Note M3 OT- IP Subjective and Pain Start: 08/08/18 15:12 Freq: Status: Active Protocol: Document 08/09/18 10:00 [facility] (Rec: 08/09/18 14:18 [facility] [id number]) OT- Subjective Occupational Therapy Visit Type Type Treatment Note Visit Start Time 10:00 Visit Stop Time 10:45 Total Visit Minutes 45 Occupational Therapy Visit Comments Patient Comments Pt wanting to shower. OT Pain Assessment Pain When Pain Assessed At Rest Pain Present Pain Present Denied Pain M4 OT- IP ADL's Start: 08/08/18 15:12 Freq: Status: Active Protocol: Document 08/09/18 10:00 [facility] (Rec: 08/09/18 14:18 [facility] [id number]) OT ADL-Dressing General Eval Upper Body Dressing Ability Independent Lower Body Dressing Ability Standby Assistance Assistive Devices Dressing Assistive Devices Digital Cartographer Comments OT Dressing Comments Pt able to use furniture stainer with good safety for all LB dressing needs and good follow through with back precautions. OT ADL-Toileting General Evaluation Toileting Ability Standby Assistance Comments OT Toileting Comments Pt able do own pericare with good safety after urination. Pt's dressing to back not completely covered and pt having concerns regarding having a bowel movement, therefore notified nursing, nursing states to have place another dressing. OT ADL-Bathing Bathing Type Bathing Type Shower General Evaluation Bathing Ability Minimal Assistance Areas Needing Assistance Wash/Dry Upper Body Wash/Dry Lower Extremities Devices Bathing Equipment Shower Chair with Arms Comments OT Bathing Comments Pt needing to rest 1/2 way through the shower as getting tired. Initially pt able to stand with FWW to shower. Pt having to sit to shower chair, therefore continue to recommend having a shower chair at home to use for safety. In addition, pt's to assist. M6 OT- IP Functional Cognition Start: 08/08/18 15:12 Freq: Status: Active Protocol: Document 08/09/18 10:00 [facility] (Rec: 08/09/18 14:18 [facility] [id number]) Cognitive Factors Limiting Selfcare Function Cognitive Ability Level of Alertness Alert Patient Orientation Name Place Situation Attention Span Ability Capable of Focused Attention Capable of Sustained Attention Ability to Follow Commands Able to Follow Multi-Step Commands Safety Awareness Underestimates Need for Assistance Cognitive Comments Cognitive Assessment Comments Pt doing better to incorporate back precautions for ADL needs and functional mobility with good safety today. M7 OT- IP Mobility and Balance Start: 08/08/18 15:12 Freq: Status: Active Protocol: Document 08/09/18 10:00 [facility] (Rec: 08/09/18 14:18 [facility] [id number]) OT- Bed Mobility Assessment Rolling Type of Rolling Roll to Right Level of Assistance Standby Assistance Supine to Sit Supine to Sit Assist Standby Assistance OT-Transfer Assessment Sit to and From Stand Sit to and from Stand Standby Assistance Transfers Transfer Ability Standby Assistance Technique Transfer Destination Bed Toilet Devices Transfer Assistive Devices Gait Belt Front Wheeled Walker Comments Mobility Comments Pt doing better, SBA today. OT- Balance Assessment Sitting Balance and Reactions Static Sitting Balance Ability Normal Dynamic Sitting Balance Ability Normal Standing Balance and Reactions Static Standing Balance Ability Good Dynamic Standing Balance Ability Fair M9 OT- IP Assessment and Plan Start: 08/08/18 15:12 Freq: Status: Active Protocol: Document 08/09/18 10:00 [facility] (Rec: 08/09/18 14:18 [facility] [id number]) OT Summary Assessment and Plan Potential Rehabilitation Potential Good Analytic Complexity at Evaluation Low Summary Progress Towards Goals Safe For Discharge Assessment Summary Pt doing well and able to assist pt safely for all Adl and functional mobility needs. Pt and have ordered toilet aid and looking to get shower chair as well. Pt going home today. Frequency of Treatment Frequency Of Treatment Once a Day Discharge Recommendations OT Discharge Recommendations Home with Assistance
== END 2018-08-09 13:22 | disposition home or self-care (01) | DRG 455 ==
PROVIDERS: Admitting Provider Orthopaedic Surgery; Family Provider Physician Assistant Medical; PCP Physician Assistant Medical; Visit Provider Orthopaedic Surgery
PROC: 0SG30AJ Fusion of Lumbosacral Joint with Interbody Fusion Device, Posterior Approach, Anterior Column, Open Approach (ICD-10-PCS; principal; 2018-08-07 10:15)
DX: M48.062 Spinal stenosis, lumbar region with neurogenic claudication (principal); M51.36 Other intervertebral disc degeneration, lumbar region; G25.0 Essential tremor
CPT/HCPCS: 36415; 72100; 76001; 85014; 85018; 94760; 97116; 97162; 97165; 97530; 97535; C1776; C1788; J0595; J1100; J2274; J2405; J2704; J3010

== ENCOUNTER → 2019-02-07 08:45 | Outpatient (CLI) | payer MEDICARE, BC, SELFPAY ==
[2018-08-07 15:02] VITALS: BMI 26.4
--- NOTE | 2019-02-07 | DI.MRI.S_ITS ---
PROCEDURE: MR ANGIO HEAD WO CON INDICATIONS: UNSTEADINESS ON FEET/DISTURBANCE TECHNIQUE: Noncontrast axial 3-D [id number] MR angiogram, with 3-dimensional maximum intensity projection (MIP) reformats of the internal carotid arteries and posterior circulation then performed. COMPARISON: [facility], MR, BRAIN WITHOUT CONTRAST, 02/24/2018, 14:48. [facility], CT, ANGIO HEAD, 02/24/2018, 14:30. FINDINGS: Image quality: Prominent artifact is present from aneurysm clip overlying the right MCA, limiting evaluation of this region. Anterior circulation: Intracranial internal carotid arteries demonstrate normal size and intraluminal flow signal. The flow within the paired anterior cerebral arteries is normal and symmetric. The flow within the middle cerebral arteries is normal and symmetric. The anterior communicating artery is seen. No stenoses, occlusions, or aneurysms. Artifact is noted from aneurysm clip overlying the right MCA. Posterior circulation: Visualized portions of the vertebral arteries demonstrate normal caliber, and join to form a normal appearing basilar artery. The flow within the posterior cerebral arteries is normal and symmetric. No stenoses, occlusions, or aneurysms. IMPRESSION: 1. No areas of hemodynamically significant stenosis, vascular occlusion or aneurysmal dilation within the anterior or posterior circulation. It is noted that evaluation of portions of the right-sided circulation are limited secondary to susceptibility artifact from aneurysm clip. Dictated by: Iris Lacy M.D. on 02/09/2019 at 9:44 Approved by: Iris Lacy M.D. on 02/09/2019 at 9:48
== END ==
PROVIDERS: PCP Physician Assistant Medical; Visit Provider Physician Assistant Medical
DX: R47.9 Unspecified speech disturbances (principal); R26.81 Unsteadiness on feet
CPT/HCPCS: 70544

== ENCOUNTER → 2021-02-20 09:00 | Outpatient (CLI) | payer MEDICARE, BC, SELFPAY ==
[2018-08-07 15:02] VITALS: BMI 26.4
--- NOTE | 2021-02-20 09:02 | DI.MRI.S_ITS ---
PROCEDURE: MR HIP LT WO CON INDICATIONS: Other bursitis of hip, left hip,Arthrodesis status TECHNIQUE: Noncontrast coronal T1 spin echo and STIR through the bony pelvis. Coronal and axial T2 fast spin echo with fat saturation, sagittal T1 spin echo, and oblique axial T2 fast spin echo with fat saturation through the hip. COMPARISON: None. FINDINGS: Image quality: Excellent. Bones and joints: Symmetric appearing bilateral hip joint osteoarthritic changes are seen with superior joint space narrowing and subchondral sclerosis. No intraosseous lesions or fractures. No avascular necrosis of the femoral heads. Post fusion changes are noted in visualized lower lumbar spine with susceptibility artifacts. Tendons and ligaments: Tendinosis and low-grade partial-thickness tear involving distal left gluteus medius and minimus tendons at their insertion on greater trochanter is seen, without associated muscle atrophy. The nearby proximal iliotibial band also appears intact. The iliopsoas tendon appears intact, without adjacent bursal fluid collections or evidence for impingement syndrome. The origin of the hamstring tendon is intact at the ischial tuberosity, as well as the associated sacrotuberous ligament. The straight and reflected heads of the rectus femoris muscle origin appear intact, as well as the conjoint tendon. The ligamentum teres appears intact where visualized. Labrum and cartilage: There is suggestion of extensive superior anterior left hip labral tear. There is also near complete loss of superior articulating cartilage in left hip. The alpha angle of the femur is within normal limits at less than 55 degrees. Soft tissues: Visualized muscles demonstrate normal bulk and internal signal. Quadratus femoris muscle demonstrates no internal edema to suggest ischiofemoral impingement. The proximal sciatic neurovascular bundle appears normal adjacent to the hamstring tendons. No free pelvic fluid. Suggestion of 1.5 cm right ovarian cyst is seen. Bladder wall thickness is normal. Genitourinary structures and bowel loops appear normal where visualized. IMPRESSION: 1. Symmetric appearing bilateral hip joint osteoarthritis. No fracture or dislocation. No marrow edema. No evidence of avascular necrosis. Prior fusion of lower lumbar spine at L5-S1 level. 2. Left gluteus medius and minimus tendinosis and low-grade partial-thickness tear at their insertion on greater trochanter. No trochanteric bursal fluid. No other muscle or tendon signal abnormality. 3. Diffuse thinning of articulating cartilages in superior left femoral head with suggestion of extensive left superior anterior hip labral tear. Dictated by: Antoni Sánchez M.D. on 02/20/2021 at 10:37 Approved by: Antoni Sánchez M.D. on 02/20/2021 at 10:42
== END ==
PROVIDERS: PCP Physician Assistant Medical; Referring Provider Physical Medicine & Rehabilitation; Visit Provider Physical Medicine & Rehabilitation
DX: M70.72 Other bursitis of hip, left hip (principal); M16.0 Bilateral primary osteoarthritis of hip; S76.012A Strain of muscle, fascia and tendon of left hip, initial encounter; Z98.1 Arthrodesis status
CPT/HCPCS: 73721